=== PATIENT | female | born 1990 | race Caucasian/White ===

== ENCOUNTER 2017-08-23 13:47 | Emergency (ER) | payer SELFPAY ==
[2017-08-23] MEDS ORDERED: Ketorolac Tromethamine 60 MG/2 ML VIAL ONE (14:35)
--- NOTE | 2017-08-23 15:02 | RAD ---
RIGHT HAND 3 VIEWS: Date: 08/23/17 HISTORY: Pain after punching wall. COMPARISON: None. FINDINGS: Joint spaces preserved. No fracture. No cortical irregularity or periosteal reaction. IMPRESSION: Unremarkable 3 views right hand. POS: [facility]
== END 2017-08-23 15:05 | disposition home or self-care (01) ==
LOC: ERS 13:47
DX: S60.221A Contusion of right hand, initial encounter (principal); F41.9 Anxiety disorder, unspecified; F31.9 Bipolar disorder, unspecified; F17.210 Nicotine dependence, cigarettes, uncomplicated; W22.01XA Walked into wall, initial encounter
CPT/HCPCS: 96372; J1885